=== PATIENT | female | born 1995 | race Caucasian/White ===

== ENCOUNTER 2017-08-01 22:52 | Inpatient (IN) | payer OTHER ==
[~2017-08-01] VITALS: Ht 160 cm; Wt 51.3 kg
--- NOTE | 2017-08-01 23:05 | NUR ---
TO BED 12 A 21 YO FEMALE PATIENT BIB FATHER C/O L LEG PAIN/NUMB ATER BEING DX WITH 2 HERNIATED DISKS ON WEDNESDAY. L2-3, L4-5. PATIENT IS AAOX4, BREATHING EVEN AND UNLABORED. ABLE TO MOVE BOTH FEET. DISTAL CMS INTACT. COMFORT MEASURES RENDERED.
--- NOTE | 2017-08-01 23:20 | NUR ---
started a saline lock on the lac g20, blood drawn and sent to lab.
[2017-08-01 23:41] LABS: BASOPHILS % (AUTO) 0.2 % (0.0-2.0); EOSINOPHILS % (AUTO) 8.9 % (0.0-6.0); HEMATOCRIT 38 % (33-45); HEMOGLOBIN 13.1 g/dL (11.5-14.8); LYMPHOCYTES # (AUTO) 2.8 /CMM (0.8-4.8); LYMPHOCYTES % (AUTO) 31.3 % (20.0-44.0); MEAN CORPUSCULAR HGB CONC 34 g/dl (31.0-36.0); MEAN CORPUSCULAR VOLUME 89 fL (82-100); MONOCYTES # (AUTO) 0.6 /CMM (0.1-1.30); MONOCYTES % (AUTO) 7.1 % (2.0-12.0); NEUTROPHILS # (AUTO) 4.6 /CMM (1.8-8.9); NEUTROPHILS % (AUTO) 52.5 % (43.0-81.0); PLATELET COUNT (AUTO) 213 /CMM (150-450); RDW COEFFICIENT OF VARIATION 14.6 (11.5-15.0); RED BLOOD CELL COUNT(AUTO) 4.32 MIL/uL (4.0-5.2); WHITE BLOOD COUNT (AUTO) 8.8 K/uL (4.3-11.0)
--- NOTE | 2017-08-01 23:42 | NUR ---
REPORT GIVEN TO TOMAS NI FOR MINERVA.
[2017-08-01 23:51] LABS: CREATININE 0.7 mg/dL (0.6-1.3); POTASSIUM 3.7 mmol/L (3.5-5.1)
[2017-08-01 23:54] LABS: INR 0.93 (0.87-1.13)
--- NOTE | 2017-08-02 00:10 | NUR ---
TRANSFERRED PATIENT TO [facility], NO INCIDENT NOTED.
--- NOTE | 2017-08-02 00:12 | NUR ---
MS RN ADMITTING NOTES: ADMITTED A 21 YO FEMALE PATIENT WHO WAS SEEN IN THE ER DUE TO WORSENED LEFT LEG PAIN, WHICH PATIENT DESCRIBES "MUSCLE TIGHTNESS", NUMBNESS OVER LEFT ANKLE TO LEFT FOOT AND DIFFICULTY WALKING. NEETA CLAIMS THAT THE PAIN HAS STARTED OVER A MONTH AGO, BUT IT WAS NOTED TO BE WORSE LAST WEDNESDAY, FOR WHICH SHE WENT TO DR BELLE'S OFFICE AND MRI WAS DONE. PATIENT ADMITTED FOR DIAGNOSIS OF HERNIATED DISK AT L2-L3, L3-L4, AND HAS BEEN NPO SINCE 2330 PM FOR PROCEDURE IN AM. PATIENT IS AOX4, APPEARS CALM AND IN NO DISTRESS, ON ROOM AIR, BREATHING EVEN AND UNLABORED, BREATH SOUNDS CLEAR, PAIN OVER LEFT LOWER LEG SCALED AT 4/10. PIV OVER RAC G 18 INTACT AND PATENT TO FLUSH. PROVIDED FOR COMFORT AND SAFETY, BED IN LOWEST AND LOCKED POSITION, SIDERAILS UP X 3, CALL LIGHT WITHIN REACH. ORIENTED TO UNIT. WILL CONT TO MONITOR.
[2017-08-02] MEDS ORDERED: IBUP200C5 PO (02:23)
[2017-08-02] MEDS ORDERED: METH1ADH6 TP (02:23)
[2017-08-02] MEDS ORDERED: IV D5/0.45 NACL 1,000 ML IV PRN (02:39)
[2017-08-02] MEDS ORDERED: HYDROCODONE/APAP 5/325MG 1 EACH TABLET PO PRN (03:00)
[2017-08-02] MEDS ORDERED: DEXAMETHASONE SOD PHOSPHATE 10 MG/ML VIAL IV ONE (03:00)
[2017-08-02] MEDS ORDERED: KETOROLAC TROMETHAMINE INJ 30 MG/ML VIAL IV PRN (03:00)
[2017-08-02] MEDS ORDERED: LORAZEPAM INJ 2 MG/ML VIAL IV PRN (03:00)
[2017-08-02] MEDS ORDERED: MORPHINE SULFATE INJ 2 MG/ML DISP.SYRIN IV PRN (03:00)
[2017-08-02] MEDS ORDERED: ONDANSETRON HCL/PF 4 MG/2 ML VIAL IVP PRN (03:00)
[2017-08-02] MEDS ORDERED: ZOLPIDEM TARTRATE 5 MG TABLET PO PRN (03:00)
--- NOTE | 2017-08-02 06:57 | NUR ---
MS RN CLOSING NOTES: PATIENT IN BED, AOX4, ON ROOM AIR, BREATHING EVEN AND UNLABORED. APPEARS CALM AND IN NO DISTRESS. ONLY COMPLAINS OF PAIN/ TIGHTNESS OVER LEFT LOWER LEG AND ANKLE. DUE MEDS PROVIDED. PIV OVER RAC G 18 INTACT AND INFUSING WELL WITH D5 1/2 NS RUNNING AT 75 ML/HR. MAINTAINED ON NPO. PROVIDED FOR COMFORT AND SAFETY. BED IN LOWEST AND LOCKED POSITION, SIDERAILS UP X3, CALL LIGHT WITHIN REACH. WILL ENDORSE TO AM RN FOR MINERVA.
--- NOTE | 2017-08-02 07:33 | NUR ---
M/S RN NOTE: RECEIVED PATIENT IN BED, AWAKE, ALERT AND VERBALLY RESPONSIVE. SISTER WAS PRESENT AT THE BEDSIDE. RESPIRATION IS EVEN AND UNLABORED. HOB ELEVATED AT 30 DEGREE. KEPT NPO AFTER MIDNIGHT FOR HER PROCEDURE AT 11 AM TODAY. PATIENT FULLY UNDERSTOOD IT. INFORMED CONSENT WAS SIGNED BY THE FATHER AND AWAITING FOR THE PATIENT'S SURGERY TIME. BED ON LOWEST POSITION. CALL LIGHT WITHIN REACH. NEEDS ANTICIPATED.
[2017-08-02] MEDS ORDERED: BUPIVACAINE 0.25% 75 MG/30 ML VIAL ONE (07:34)
[2017-08-02] MEDS ORDERED: HEMOSTATIC MATRIX 10 ML 1 EACH PAD MC ONE (07:34)
[2017-08-02] MEDS ORDERED: methylPREDNISolone ACETATE 80 MG/ML VIAL ONE (07:35)
[2017-08-02] MEDS ORDERED: LIDOCAINE 1%-EPI 1:100,000 20 ML VIAL ONE ×2 (07:35→07:50)
[2017-08-02 08:00] VITALS: BP 111/69
[2017-08-02] MEDS ORDERED: METHYLENE BLUE 10 ML VIAL IJ ONE (08:14)
[2017-08-02] MEDS ORDERED: CELECOXIB 100 MG CAPSULE PO SCH (09:00)
[2017-08-02] MEDS ORDERED: oxyCODONE HCL SR 20MG TAB.SR.12H PO SCH (09:00)
[2017-08-02] MEDS ORDERED: ACETAMINOPHEN 325 MG TABLET PO PRN (09:00)
--- NOTE | 2017-08-02 09:22 | NUR ---
M/S RN NOTE: CALLED AND SPOKE W/ RANDALL SPENCER AND CLARIFIED W/ HIM THE ORDER FOR THE PATIENT'S NPO STATUS. RANDALL MEDLEY ORDERED PO MEDICATIONS (OXYCONTIN AND CELEBREX) TO BE GIVEN IN AM AND PER MD HE ORDERED TO KEEP PATIENT NPO EXCEPT MEDICATIONS. PATIENT MADE AWARE.
--- NOTE | 2017-08-02 10:05 | NUR ---
M/S RN NOTE: PATIENT WAS TRANSPORTED TO OR FOR THE PREPARATION OF HER SURGERY. PATIENT REMAINED ON STABLE CONDITION AND NOT ON ANY FORM OF DISTRESS. FAMILY PRESENT AT THE BEDSIDE.
[2017-08-02] MEDS ORDERED: FENTANYL PF 100MCG/2ML AMPUL ONE (10:20)
[2017-08-02] MEDS ORDERED: MIDAZOLAM HCL 2 MG/2ML VIAL ONE (10:21)
[2017-08-02] MEDS ORDERED: ROCURONIUM BROMIDE 50 MG/5 ML ONE (10:21)
[2017-08-02] MEDS ORDERED: FENTANYL PF 250MCG/5ML AMPUL ONE (10:49)
[2017-08-02] MEDS ORDERED: SEVOFLURANE 250 ML BOTTLE IH ONE (10:51)
--- NOTE | 2017-08-02 11:42 | NUR ---
M/S RN NOTE: PATIENT STILL IN OR. UNABLE TO RE-ASSESS FOR PAIN.
--- NOTE | 2017-08-02 12:00 | NUR ---
Mariaelena NI NOTE: PATIENT STILL IN OR. AWAITING FOR HER RETURN TO THE UNIT. Addendum: 08/02/17 at 1223 by DARRYN SAHU RN Amended: Links added.
--- NOTE | 2017-08-02 14:20 | NUR ---
M/S RN NOTE: PATIENT CAME BACK TO DAT AT [facility] AND REPORT WAS GIVEN BY LAST HODGE (RECOVERY NURSE). PATIENT REMAINED ALERT, ORIENTED AND VERBALLY RESPONSIVE. DENIED PAIN AT THIS TIME. (L) BACK WAS NOTED W/ MEPILEX IN PLACED AND DRESSING IS INTACT AND CLEAN. PATIENT WAS INFORMED THAT PER DR. BELLE, SHE CAN START W/ ICE CHIPS AND DIET CAN BE ADVANCED TO REGULAR DIET TOLERATED. BP= 104/74, 98.1F, 80, 18, 0/10, SPO2 ON RA= 100%.
[2017-08-02] MEDS ORDERED: HYDROCODONE/APAP 10/325MG 1 EA TABLET PO PRN (15:00)
--- NOTE | 2017-08-02 15:17 | NUR ---
M/S RN NOTE: DR. CHERRY WAS INFORMED OF THE PATIENT'S RETURN TO THE UNIT AND THE ORDERS FROM DR. BELLE. PER MD, WILL CONTINUE TO MONITOR THE PATIENT'S CONDITION. PATIENT REMAINED FREE OF PAIN AT THIS TIME.
[2017-08-02] MEDS ORDERED: MORPHINE SULFATE INJ 4 MG/ML DISP.SYRIN IV PRN (15:30)
[2017-08-02 16:00] VITALS: BP 104/64
--- NOTE | 2017-08-02 19:24 | NUR ---
M/S RN NOTE: CALLED AND SPOKE W/ DR. CHERRY AND MADE HIM AWARE THAT THE PATIENT WAS ABLE TO AMBULATE W/ STANDBY ASSISTANCE TO THE BATHROOM AND VOIDED X1 W/ NO DIFFICULTY. PATIETN ATE REGULAR DIET FOR DINNER AND NO NAUSEA/VOMITING NOTED. PER DR. CHERRY, PATIENT IS CLEAR TO GO HOME AND MAKE THAT FOLLOW-UP APPOINTMENT W/ DR. BELLE IN 2 WEEK. WILL REPORT TO PM SHIFT NURSE FOR CONTINUITY OF CARE.
[2017-08-02 20:00] VITALS: BP 130/67
--- NOTE | 2017-08-02 20:02 | NUR ---
RN NOTE PATIENT WAS DC RIGHT NOW IN STABLE CONDITION VIA WHEELCHAIR TO THE CAR SAFELY, NO RESPIRATORY DISTRESS, NO PAIN OR DISCOMFORT, PATIENT LEFT WITH FAMILY MEMBERS, VITAL SIGNS WERE STABLE, IV ACCESS FROM RAC 18 GAUGE WAS REMOVED, NO S/S OF INFECTION, REDNESS OR PAIN NOTED, TOLERATED PROCEDURE WELL, PICTURE OF THE SPINE WAS TAKEN AND PLACED IN THE CHART WITH A DRESSING BC WAS NOT ABLE TO REMOVE IT BC HAD PROCEDURE/SURGERY EARLIER TODAY, EDUCATION PROVIDED, BELONGINGS LIST SIGNED, ALL SAFETY MEASUREA TAKEN WHEN WERE TRANSFERRING PATIENT
== END 2017-08-02 20:00 | disposition home or self-care (01) | DRG 520 ==
LOC: ER 22:52 → MEDSG1 23:50
PROVIDERS: ADMIT Nurse Practitioner Acute Care; ATTEND Nurse Practitioner Acute Care
PROC: 0SB20ZZ Excision of Lumbar Vertebral Disc, Open Approach (ICD-10-PCS; principal; 2017-08-02 11:00)
PROC: 01NB0ZZ Release Lumbar Nerve, Open Approach (ICD-10-PCS; principal; 2017-08-02 11:00)
PROC: 3E0R33Z Introduction of Anti-inflammatory into Spinal Canal, Percutaneous Approach (ICD-10-PCS; principal; 2017-08-02 11:00)
DX: M51.16 Intervertebral disc disorders with radiculopathy, lumbar region (principal); M21.372 Foot drop, left foot
CPT/HCPCS: 36415; 71045-TC; 72020-TC; 80048-TC; 84703-TC; 85025-TC; 85730-TC; 86850-TC; 87081-TC; 88304-TC; 88305-TC; 88311-TC; A4606; A6209; A6253; A6402; J1040; J1100; J2250; J2704; J2710; J3010; J3490; Q9968; Z7610